=== PATIENT | male | born 1960 | race Caucasian/White ===

== ENCOUNTER 2024-11-01 17:39 | Emergency (ER) | payer MEDICARE, OTHER, SELFPAY ==
[2024-11-01 17:43] VITALS: BP 168/89
[2024-11-01 18:17] LABS: % Basophils 0.5 % (0-2); % Immature Granulocytes 0.4 % (0-0.5); % Lymphocytes 10.3 % (20.5-51.1); % Monocytes 10.6 % (1.7-9.3); % Neutrophils 74.2 % (42.2-75.2); Absolute Basophils 0.1 10^3/uL (0-0.2); Absolute Eosinophils 0.4 10^3/uL (0-0.7); Absolute Lymphocytes 1.1 10^3/uL (1.2-3.4); Absolute Monocytes 1.2 10^3/uL (0.1-0.6); Absolute Neutrophils 8.2 10^3/uL (1.4-6.5); Hematocrit 45.3 % (39.0-52.0); Hemoglobin 15.8 g/dL (13.0-18.0); Mean Corp Hgb Conc. 34.9 g/dL (33.0-37.0); Mean Corpuscular Hgb 30.4 pg (27.0-31.0); Mean Corpuscular Volume 87.3 fL (80.0-94.0); Mean Platelet Volume 9.3 fL (7.4-10.4); Nucleated Red Blood Cells % 0 % (-); Platelet Count 230 10^3/uL (130-400); Red Blood Cell Count 5.19 10^6/uL (4.70-6.10); Red Cell Dist. Width 12.5 % (11.5-14.5); White Blood Cell Count 11.1 10^3/uL (4.8-10.8)
[2024-11-01 18:28] LABS: ALT (SGPT) 34 U/L (0-50); AST (SGOT) 31 U/L (17-59); Albumin 4.9 g/dl (3.5-5.0); Alkaline Phosphatase 84 U/L (38-126); Blood Urea Nitrogen 18 mg/dl (9-20); Calcium 9.4 mg/dl (8.4-10.2); Carbon Dioxide 21 mmol/L (22-30); Chloride 104 mmol/L (98-107); Glucose 95 mg/dl (70-99); Potassium 4.2 mmol/L (3.5-5.1); Sodium 137 mmol/L (135-145); Total Bilirubin 1.3 mg/dl (0.2-1.3); eGFR > 60.00
[2024-11-01 18:55] LABS: Troponin I < 0.012 ng/ml
--- NOTE | 2024-11-01 20:18 | ED.GENMED ---
History of Present Illness
General
Chief Complaint: Chest Pain
Time Seen by Provider: 11/01/24 20:18
History of Present Illness
History of Present Illness:
TIME OF INITIAL ENCOUNTER: 8:15 PM
HPI: Patient presents with chest discomfort. He states that the symptom started around 4 PM today. He describes it as a sharp pain as he uses 2 fingers to point the left side of his sternum. The pain does not radiate. He has no shortness of
breath. He became increasingly concerned because it was happening intermittently. It was not necessarily related to exertion. He has no significant pleuritic component. 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 He
states his symptoms occurred when he was on his hands knees using a dust buster underneath furniture. The patient also reports chronic pain/neuropathy related to prior Lisfranc fracture.
EXAM:
GENERAL: Well appearing in no distress
HEENT: Moist oral mucosa
CARDIOVASCULAR: No murmurs, normal heart rate, regular rhythm, mild small focal area of chest wall tenderness just to the left of the sternum
PULMONARY: No respiratory distress, breath sounds are clear and equal
ABDOMEN: Soft with no peritoneal signs, no tenderness
NEUROLOGIC: Excellent strength all extremities, no coordination deficits
PSYCHIATRIC: Appropriate mental status, normal insight and judgement, appears somewhat anxious
EXTREMITIES: Nontender, no edema, moves all extremities equally
SKIN: No rash, no lesions
NUMBER AND COMPLEXITY OF PROBLEMS ADDRESSED AT THE ENCOUNTER
� Chronic conditions affecting care: High blood pressure, hyperlipidemia, GERD
� Acute Exacerbation and/or Progression of Chronic Illness: This is an acute problem
� Differential Diagnosis includes: Chest wall pain, anxiety, pneumothorax very unlikely, ACS extremely unlikely
AMOUNT AND/OR COMPLEXITY OF DATA TO BE REVIEWED AND ANALYZED
� I performed an independent evaluation of and my interpretation is:
EKG: Sinus 91, left axis deviation, bifascicular block not significantly changed from 02/13/2021
CT:
X-rays: Chest x-ray no consolidation, no pneumothorax
Laboratory Studies: White count 11.1, hemoglobin normal, chemistries normal and troponin less than 0.012
Other:
� Review of other/old records: The patient was seen here in 2019 with a Lisfranc fracture
� Clinical information was obtained by an independent historian: I spoke to the at bedside
� Prescriptions/Medications Considered but not given:
� Further testing considered but not performed:
RISK OF COMPLICATIONS AND/OR MORBIDITY OR MORTALITY OF PATIENT MANAGEMENT
� Social determinants of health affecting care: Lives at home
� Discussion with other providers:
� Escalation of care including admission/observation vs risk of discharge considered: Very low suspicion for serious etiology. Initial EKG unchanged, first troponin negative. Pain is a small focal area to the left anterior
chest wall. He already has cardiology follow-up coming up shortly at [facility].
ANY OTHER UPDATES:
2 troponins unremarkable. The patient remains comfortable in appearance. He feels comfortable going home. He has an appoint to see cardiology next week.
Past History
Past History
ED Past Medical History: HTN and Other (Unknown neuropathy)
Social History
Tobacco: Non-smoker
Alcohol: None
Drug: None
Personal:
Living: with family
Employment: Employed
Family History
Family History: Other (Noncontributory)
Phy Exam
Physical Exam
Physical Exam:
See HPI
Scores
Heart Score for Chest Pain Patients
STEMI patient?: Not applicable
Course
Orders/Labs/Results
Orders:
Orders
11/01/24 17:41
Electrocardiogram (*1) Urgent
Reason for Study: Chest Pain
EKG- Treatment ONCE
11/01/24 17:57
Complete Blood Count/With Diff Urgent
Comprehensive Metabolic Panel Urgent
Troponin I Urgent
11/01/24 20:05
CXR2 [CR Chest - 2 Views ] Urgent
Comment:
Reason For Exam: chest pain
11/01/24 20:27
EKG- Treatment ONCE
11/01/24 20:54
Electrocardiogram (*1) Urgent
Reason for Study: Chest Pain
EKG- Treatment ONCE
11/01/24 20:55
Electrocardiogram (*1) Urgent
Reason for Study: Chest Pain
11/01/24 20:57
Troponin I Urgent
Abnormal Lab Results
11/01/24
17:57
WBC 11.1 H 10^3/uL
(4.8-10.8)
Absolute Neuts (auto) 8.2 H 10^3/uL
(1.4-6.5)
Absolute Lymphs (auto) 1.1 L 10^3/uL
(1.2-3.4)
Absolute Monos (auto) 1.2 H 10^3/uL
(0.1-0.6)
Lymphocytes % 10.3 L %
(20.5-51.1)
Monocytes % 10.6 H %
(1.7-9.3)
Carbon Dioxide 21 L mmol/L
(22-30)
11/01/24 17:57
11/01/24 17:57
Vital Signs
Initial and Last Documented VS:
Initial Vital Signs
Temp Pulse Resp BP Pulse Ox
37.7 C 85 18 168/89 95
11/01/24 17:43 11/01/24 17:43 11/01/24 17:43 11/01/24 17:43 11/01/24 17:43
Last Documented Vital Signs
Temp Pulse Resp BP Pulse Ox
37.7 C 75 18 168/89 95
11/01/24 17:43 11/01/24 20:28 11/01/24 20:28 11/01/24 17:43 11/01/24 20:28
*Critical Care Note
Total Time (30-74mins, 75-104mins- exclusive of procedures): Not Applicable
ED Attending Note
-
Portions of this chart may have been created with voice recognition software.� Occasional wrong word or��sound alike� substitutions may have occurred due to the inherent limitations of voice recognition software.
Discharge Plan
Departure
Patient Disposition: Home (Routine Discharge)
Date of Disposition: 11/01/24
Time of Disposition: 21:57
Patient with high blood pressure during this ER visit?: Yes
Discharge Problem:
Chest pain
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
Prescriptions:
No Action
famotidine 40 MG tablet
40 mg PO HS
lisinopril [Prinivil] 10 MG tablet
15 mg PO DAILY
fluticasone propionate [Flovent HFA] 1 PUFF HFA aerosol inhaler
2 puff inhalation R BID
budesonide 1 MG/2 ML suspension for nebulization
1 mg IH BID
cannabidiol [Epidiolex] 1 UNIT solution
1 unit PO PRN PRN (Reason: pain)
oxycodone-acetaminophen 5 MG/325 MG tablet
1 tab PO Q4HPRN PRN (Reason: pain) Qty: 20 0RF
Referrals:
Kasey Sansd MD [Family Provider, Family Practice]
Activity Restrictions/Additional Instructions:
The cause of your symptoms is unclear. Basic labs are unremarkable. 2 cardiac blood tests (troponin) are both normal. Chest x-ray is unremarkable. EKG again shows a bifascicular block which you have had before. I strongly recommend that you
follow-up with your nailer operator through [facility] next week. Return here if worse or other concerns.
Interventions
Interventions:
*Risk Screen - Suicide Last Done: 11/01/24 17:43
*General Assessment Last Done: 11/01/24 17:43
*Neglect/Abuse Screening Last Done: 11/01/24 17:43
*ED COVID-19 Vaccine History Last Done: 11/01/24 17:43
Discharge Date and Time
Print Language: ITALIAN
[2024-11-01 21:00] VITALS: BP 149/84
[2024-11-01 21:30] LABS: Troponin I < 0.012 ng/ml
[2024-11-01 22:04] VITALS: BP 156/84
== END 2024-11-01 22:08 | disposition home or self-care (01) ==
LOC: EMR 17:39
PROVIDERS: Emergency Medicine; EMERGENCY PHYSICIAN Emergency Medicine; FAMILY PHYSICIAN Family Medicine
DX: R07.89 Other chest pain (principal); I10 Essential (primary) hypertension; G89.29 Other chronic pain; E78.5 Hyperlipidemia, unspecified; K21.9 Gastro-esophageal reflux disease without esophagitis
CPT/HCPCS: 99285; 71046; 80053; 84484; 85025; 93005